=== PATIENT | female | born 1955 | race Caucasian/White ===

== ENCOUNTER 2019-01-09 19:54 | Inpatient (IN) | payer MEDICARE, BC ==
[2019-01-09] MEDS: ACETAMINOPHEN 325 MG TAB PO (23:17)
[2019-01-09 23:19] LABS: ADD MAN DIFF? NO
[2019-01-09 23:20] LABS: WHITE BLOOD COUNT 7.3 10^3/ul (4.8-10.8)
[2019-01-09 23:20] LABS: BASOPHILS % 0.5 % (0.0-2.0); EOSINOPHILS % 0.1 % (0.0-7.0); HEMOGLOBIN 14.4 g/dl (12.0-16.0); MEAN CORPUSCULAR HEMOGLOBIN 29.4 pg (29.0-33.0); MEAN CORPUSCULAR HGB CONC 33.5 g/dl (32.0-37.0); MEAN CORPUSCULAR VOLUME 87.9 fl (82.0-101.0); MEAN PLATELET VOLUME 10.9 fl (7.4-10.4); MONOCYTE # 0.4 10^3/ul (0.3-0.9); MONOCYTES % 5.2 % (0.0-11.0); NEUTROPHIL # 5.9 10^3/ul (1.6-7.5); NEUTROPHILS % 80.8 % (39.0-77.0); PLATELET COUNT 226 10^3/UL (140-415); RED BLOOD COUNT 4.89 10^6/ul (4.20-5.40); RED CELL DISTRIBUTION WIDTH 12.5 % (11.5-14.5)
[2019-01-09 23:40] LABS: INR 0.89; PARTIAL THROMBOPLASTIN TIME 25.8 Sec (23.0-35.0); PROTIME 12.1 Sec (11.9-14.9); PT RATIO 0.9
[2019-01-09 23:42] LABS: ANION GAP 7 (5-13); BLOOD UREA NITROGEN 14 mg/dl (7-20); CALCIUM 9.4 mg/dl (8.4-10.2); CARBON DIOXIDE 29 mmol/L (21-31); CHLORIDE 104 mmol/L (97-110); Estimated GFR > 60 mL/min (>60); GLUCOSE 113 mg/dl (70-220); POTASSIUM 3.5 mmol/L (3.5-5.1); SODIUM 140 mmol/L (135-144)
[2019-01-10 00:35] LABS: TROPONIN-I < 0.012 ng/ml (0.000-0.120)
[2019-01-10] MEDS ORDERED: ONDANSETRON 4 MG INJ IV ×2 (01:30→02:00)
[2019-01-10] MEDS ORDERED: ACETAMINOPHEN 325 MG TAB PO (01:30)
[2019-01-10] MEDS ORDERED: MAGNESIUM HYDROXIDE 30ML CUP PO (02:00)
[2019-01-10] MEDS ORDERED: LORAZEPAM 2 MG INJ IV (02:00)
[2019-01-10] MEDS ORDERED: DOCUSATE SODIUM 100 MG CAP PO (02:00)
[2019-01-10] MEDS ORDERED: NITROGLYCERIN (SL) 0.4 MG TAB SL (02:00)
[2019-01-10] MEDS ORDERED: ALBUTEROL/IPRATROPIUM (NEB) 3 ML AMP HHN (02:00)
[2019-01-10] MEDS ORDERED: HYDROCODONE/APAP (5/325) TAB PO (02:00)
[2019-01-10] MEDS ORDERED: NACL 0.9% 3 ML SYG IV (02:00)
[2019-01-10] MEDS ORDERED: hydrALAzine 20 MG INJ IV (02:00)
[2019-01-10] MEDS ORDERED: morphine 2 MG INJ IV (02:00)
[2019-01-10 03:33] LABS: AMMONIA < 9 umol/l (9-30); ETHANOL < 10.0 mg/dl (0-0)
[2019-01-10] MEDS: SOD CHLORIDE 0.45% 1,000 ML IV ×3 (04:37→20:39)
[2019-01-10] MEDS: ASPIRIN (EC) 325 MG TAB PO (09:00)
[2019-01-10] MEDS: HEPARIN 5,000 UNIT/1 ML VIAL SC ×2 (09:38→20:48)
[2019-01-10 11:27] LABS: ADD UMIC NO; UR ASCORBIC ACID NEGATIVE (NEGATIVE); UR BILIRUBIN (Dip) NEGATIVE (NEGATIVE); UR BLOOD (Dip) NEGATIVE (NEGATIVE); UR CLARITY CLEAR (CLEAR); UR COLOR YELLOW (YELLOW); UR GLUCOSE (Dip) NEGATIVE (NEGATIVE); UR KETONES (Dip) NEGATIVE (NEGATIVE); UR LEUKOCYTE ESTERASE (Dip) NEGATIVE Leu/ul (NEGATIVE); UR NITRITE (Dip) NEGATIVE (NEGATIVE); UR TOTAL PROTEIN (Dip) NEGATIVE (NEGATIVE); UR UROBILINOGEN (Dip) NEGATIVE (NEGATIVE)
[2019-01-10 11:51] LABS: AMPHETAMINE/METHAMPHETAMINE Negative (NEGATIVE); BARBITURATES Negative (NEGATIVE); BENZODIAZEPINES Negative (NEGATIVE); CANNABINOIDS Negative (NEGATIVE); COCAINE Negative (NEGATIVE); OPIATES Negative (NEGATIVE)
[2019-01-10] MEDS: CHOLECALCIFEROL 1,000 UNIT TAB PO (20:40)
[2019-01-11 06:43] LABS: ADD MAN DIFF? NO
[2019-01-11 06:47] LABS: BASOPHILS % 0.8 % (0.0-2.0); EOSINOPHILS # 0.1 10^3/ul (0.0-0.5); EOSINOPHILS % 1.4 % (0.0-7.0); HEMATOCRIT 39.5 % (37.0-47.0); HEMOGLOBIN 13.1 g/dl (12.0-16.0); MEAN CORPUSCULAR HEMOGLOBIN 29.6 pg (29.0-33.0); MEAN CORPUSCULAR HGB CONC 33.2 g/dl (32.0-37.0); MEAN CORPUSCULAR VOLUME 89.2 fl (82.0-101.0); MEAN PLATELET VOLUME 11.6 fl (7.4-10.4); MONOCYTE # 0.5 10^3/ul (0.3-0.9); MONOCYTES % 9.8 % (0.0-11.0); NEUTROPHIL # 2.4 10^3/ul (1.6-7.5); NEUTROPHILS % 47.8 % (39.0-77.0); PLATELET COUNT 210 10^3/UL (140-415); RED BLOOD COUNT 4.43 10^6/ul (4.20-5.40); RED CELL DISTRIBUTION WIDTH 12.6 % (11.5-14.5)
[2019-01-11 06:47] LABS: WHITE BLOOD COUNT 4.9 10^3/ul (4.8-10.8)
[2019-01-11 07:11] LABS: CHOLESTEROL 181 mg/dl (100-200)
[2019-01-11 07:11] LABS: CHOL/HDL RATIO 2.2 RATIO; HDL CHOLESTEROL 79 mg/dl (35-98); LDL CHOLESTEROL,CALCULATED 94 mg/dl; TRIGLYCERIDES 42 mg/dl (0-149)
[2019-01-11 07:24] LABS: ANION GAP 6 (5-13); BLOOD UREA NITROGEN 14 mg/dl (7-20); CALCIUM 8.9 mg/dl (8.4-10.2); CARBON DIOXIDE 27 mmol/L (21-31); CHLORIDE 107 mmol/L (97-110); CREATININE 0.61 mg/dl (0.44-1.00); Estimated GFR > 60 mL/min (>60); GLUCOSE 88 mg/dl (70-220); PHOSPHORUS 3.5 mg/dl (2.5-4.9); POTASSIUM 3.6 mmol/L (3.5-5.1); SODIUM 140 mmol/L (135-144)
[2019-01-11 07:25] LABS: HEMOGLOBIN A1C 5.4 % (0-5.9)
[2019-01-11] MEDS: ASPIRIN (EC) 325 MG TAB PO (08:43)
[2019-01-11] MEDS: CHOLECALCIFEROL 1,000 UNIT TAB PO ×2 (08:43→20:12)
[2019-01-11] MEDS: HEPARIN 5,000 UNIT/1 ML VIAL SC ×2 (08:50→20:18)
[2019-01-12 06:50] LABS: ADD MAN DIFF? NO
[2019-01-12 06:52] LABS: WHITE BLOOD COUNT 4.9 10^3/ul (4.8-10.8)
[2019-01-12 06:52] LABS: BASOPHILS % 0.6 % (0.0-2.0); EOSINOPHILS # 0.1 10^3/ul (0.0-0.5); EOSINOPHILS % 1.8 % (0.0-7.0); HEMATOCRIT 41.2 % (37.0-47.0); HEMOGLOBIN 13.8 g/dl (12.0-16.0); LYMPHOCYTES # 2.1 10^3/ul (0.8-2.9); LYMPHOCYTES % 43.1 % (15.0-51.0); MEAN CORPUSCULAR HEMOGLOBIN 29.6 pg (29.0-33.0); MEAN CORPUSCULAR HGB CONC 33.5 g/dl (32.0-37.0); MEAN CORPUSCULAR VOLUME 88.2 fl (82.0-101.0); MEAN PLATELET VOLUME 11.5 fl (7.4-10.4); MONOCYTE # 0.4 10^3/ul (0.3-0.9); NEUTROPHIL # 2.2 10^3/ul (1.6-7.5); NEUTROPHILS % 45.3 % (39.0-77.0); PLATELET COUNT 209 10^3/UL (140-415); RED BLOOD COUNT 4.67 10^6/ul (4.20-5.40); RED CELL DISTRIBUTION WIDTH 12.6 % (11.5-14.5)
[2019-01-12 07:14] LABS: ANION GAP 8 (5-13); BLOOD UREA NITROGEN 14 mg/dl (7-20); CARBON DIOXIDE 27 mmol/L (21-31); CHLORIDE 107 mmol/L (97-110); CREATININE 0.66 mg/dl (0.44-1.00); Estimated GFR > 60 mL/min (>60); GLUCOSE 86 mg/dl (70-220); POTASSIUM 3.9 mmol/L (3.5-5.1); SODIUM 142 mmol/L (135-144)
[2019-01-12] MEDS: ASPIRIN (EC) 325 MG TAB PO (08:40)
[2019-01-12] MEDS: CHOLECALCIFEROL 1,000 UNIT TAB PO ×2 (08:40→20:05)
[2019-01-12] MEDS: HEPARIN 5,000 UNIT/1 ML VIAL SC ×2 (08:44→20:15)
[2019-01-12] MEDS: ACETAMINOPHEN 325 MG TAB PO (08:53)
== END 2019-01-12 21:17 | disposition home health service (06) | DRG 948 ==
LOC: E/R 19:54 → 6WM 01-10 01:20
DX: R41.82 Altered mental status, unspecified (principal); G35 Multiple sclerosis; M21.371 Foot drop, right foot; M51.26 Other intervertebral disc displacement, lumbar region; Z91.81 History of falling
CPT/HCPCS: 36415; 70450; 70551; 71045; 72100; 80048; 80061; 80307; 81003; 82140; 82607; 83036; 83735; 84100; 84439; 84443; 84484; 85025; 85610; 85730; 87086; 92610; 93005; 93306; 93880; 95819; 97110; 97116; 97162; 97165; 97530; 99285-25; G0378